=== PATIENT | male | born 1950 | race Caucasian/White ===

== ENCOUNTER → 2019-09-04 | Outpatient (CLI) | payer MEDICARE, OTHER ==
--- NOTE | 2019-09-04 13:03 | RAD ---
EXAM: Chest, 2 views. HISTORY: Cough. COMPARISON: 07/05/2010. FINDINGS: 2 views of the chest are obtained. There is emphysema with apical predominant pleural parenchymal scarring. There is no pleural effusion or pneumothorax. The heart is normal in size. There is evidence of prior CABG. There is a small nodular opacity overlying the right lower lobe which may be due to a nipple shadow. IMPRESSION: 1. Emphysema with apical predominant pleural parenchymal scarring. 2. Small nodule overlying the right lower lobe. Follow-up following placement of nipple markers is recommended. Electronically signed by: Sharron Harper MD (09/04/2019 1:00 PM) [place] [id number]
== END | disposition home or self-care (01) ==
LOC: RAD 12:32
PROVIDERS: ATTEND Specialist
DX: J43.9 Emphysema, unspecified (principal); J98.4 Other disorders of lung; R91.1 Solitary pulmonary nodule; Z95.1 Presence of aortocoronary bypass graft
CPT/HCPCS: 71046

== ENCOUNTER 2021-04-29 21:02 | Emergency (ER) | payer MEDICARE ==
[~2021-04-29] VITALS: Ht 180.3 cm; Wt 78.7 kg
--- NOTE | 2021-04-29 21:18 | PHYS DOC ---
General Adult EDM: Chief Complaint: weakness HPI: HPI: 71-year-old male presents via EMS as a diversion from the IN. The patient was going to the hospital because he has had increased weakness. He was so weak that he fell at home today. He denies any injuries. The patient does have some mild dementia at baseline according to family. The patient was recently in the hospital at the [place], but he does not remember why. He does not have any specific complaints other than general weakness. He has been vaccinated against COVID-19 with the Moderna vaccine series. He was reported to have a fever at home, but none in the ER. Review of Systems: Review of Systems: Constitutional: Fever, weakness Eyes: Denies change in visual acuity HENT: Denies nasal congestion or sore throat Respiratory: Denies cough or shortness of breath Cardiovascular: Denies chest pain or edema GI: Denies abdominal pain, nausea, vomiting, bloody stools or diarrhea : Denies dysuria Musculoskeletal: Denies back pain or joint pain Integument: Denies rash Neurologic: Denies headache, focal weakness or sensory changes Endocrine: Denies polyuria or polydipsia Lymphatic: Denies swollen glands Psychiatric: Denies depression or anxiety Physical Exam: PE: Constitutional: Well developed, well nourished, no acute distress, non-toxic sukumar earance. [] HENT: Normocephalic, atraumatic, bilateral external ears normal, oropharynx moist, no oral exudates, nose normal. [] Eyes: PERRLA, EOMI, conjunctiva normal, no discharge. [] Neck: Normal range of motion, no tenderness, supple, no stridor. [] Cardiovascular: Heart rate regular rhythm, no murmur [] Lungs & Thorax: Bilateral breath sounds clear to auscultation [] Abdomen: Bowel sounds normal, soft, no tenderness, no masses, no pulsatile masses. [] Skin: Warm, dry, no erythema, no rash. [] Back: No tenderness, no CVA tenderness. [] Extremities: No tenderness, no cyanosis, no clubbing, ROM intact, no edema. [] Neurologic: Alert and oriented X 3, normal motor function, normal sensory function, no focal deficits noted. [] Psychologic: Affect normal, judgement normal, mood normal. [] EKG: EKG: [] Radiology/Procedures: Radiology/Procedures: [] Impressions: Exam: CT head INDICATION: Altered mental status TECHNIQUE: Sequential axial images through the head were obtained without the administration of IV contrast. Exposure: One or more of the following in the visualized dose reduction techniques were utilized for this examination: 1. Automated exposure control 2. Adjustment of the MA and/or KV according to patient size 3. Use of iterative of reconstructive technique Comparisons: None FINDINGS: No focal parenchymal lesion or hemorrhage is identified. There is no midline shift or sulcal effacement. Chronic appearing infarct at the left frontal lobe and right parietal lobe. No acute vascular territory infarction is identified. Alcantar-white distinction is preserved. The ventricular system is within normal limits without compression hydrocephalus. The basal cisterns are well maintained. The visualized portions of the paranasal sinuses and mastoid air cells are well- pneumatized. No acute fractures. IMPRESSION: Chronic appearing infarcts in the supratentorial white matter. Difficult to exclude subacute or acute ischemia without recent prior imaging. If there are concerns for acute ischemia MRI would better evaluate. Electronically signed by: Shruthi Sun MD (04/29/2021 9:48 PM) [facility] DICTATED AND SIGNED BY: SHRUTHI SUN MD DATE: 04/29/212145 CC: SYBIL JONES DO; XU GOLD MD ~MTH0 0 Exam: Chest one view INDICATION: Altered mental status TECHNIQUE: Frontal view of the chest Comparisons: 09/04/2019 FINDINGS: Sternotomy wires are noted. Surgical clips overlying the left heart border. The cardiomediastinal silhouette and pulmonary vessels are within normal limits. The lung and pleural spaces are clear. IMPRESSION: No acute pulmonary process. Electronically signed by: Shruthi Sun MD (04/29/2021 9:49 PM) [facility] DICTATED AND SIGNED BY: SHRUTHI SUN MD DATE: 04/29/212147 CC: SYBIL JONES DO; XU GOLD MD ~MTH0 0 Heart Score: C/O Chest Pain: N/A Risk Factors: Risk Factors: DM, Current or recent (<one month) smoker, HTN, HLP, family history of CAD, obesity. Risk Scores: Score 0 - 3: 2.5% MACE over next 6 weeks - Discharge Home Score 4 - 6: 20.3% MACE over next 6 weeks - Admit for Clinical Observation Score 7 - 10: 72.7% MACE over next 6 weeks - Early Invasive Strategies Course & Med Decision Making: Course & Med Decision Making Pertinent Labs and Imaging studies reviewed. (See chart for details) Patient CT scan is negative for acute findings. His chest x-ray is negative for acute findings. The patient's labs showed mild anemia and elevated BUN/creatinine. Given his kidney disease this is likely at or near his baseline. I have no previous for comparison in our chart. The patient's urinalysis is negative for infection. I do not have a good reason for the patient's increased weakness. He does not meet admission criteria. He is stable for discharge at this time. [] Dragon Disclaimer: Dragnava Disclaimer: This electronic medical record was generated, in whole or in part, using a voice recognition dictation system. Departure Departure: Impression: Primary Impression: Weakness Disposition: HOME / SELF CARE / HOMELESS Condition: STABLE Referrals: XU GOLD MD (PCP) Patient Instructions: Noe [id number] SYBIL JONES DO Apr 29, 2021 21:18
[2021-04-29 21:33] LABS: BASO % 0 % (0-3); EOS # 0.3 x10^3/uL (0.0-0.7); EOS % 3 % (0-3); HEMATOCRIT 35.2 % (39.0-53.0); HEMOGLOBIN 11.7 g/dL (13.0-17.5); LYMPH # 2.3 x10^3/uL (1.0-4.8); LYMPH % 23 % (24-48); MEAN CORPUSCULAR HEMOGLOBIN 31 pg (25-35); MEAN CORPUSCULAR HGB CONC 33 g/dL (31-37); MEAN CORPUSCULAR VOLUME 92 fL (79-100); MONO # 1.3 x10^3/uL (0.0-1.1); MONO % 13 % (0-9); NEUT % 61 % (31-73); PLATELET COUNT 148 x10^3/uL (140-400); RED BLOOD COUNT 3.83 x10^6/uL (4.30-5.70); RED CELL DISTRIBUTION WIDTH 17.1 % (11.5-14.5); WHITE BLOOD COUNT 9.8 x10^3/uL (4.0-11.0)
[2021-04-29 21:36] LABS: CALCIUM 8.6 mg/dL (8.5-10.1); GFR 33.3; POTASSIUM 4.6 mmol/L (3.5-5.1)
[2021-04-29 21:42] LABS: ALBUMIN 2.5 g/dL (3.4-5.0); ALBUMIN/GLOBULIN RATIO 0.7 (1.0-1.7); TOTAL BILIRUBIN 0.3 mg/dL (0.2-1.0); TOTAL PROTEIN 6.3 g/dL (6.4-8.2)
--- NOTE | 2021-04-29 21:50 | RAD ---
Exam: CT head INDICATION: Altered mental status TECHNIQUE: Sequential axial images through the head were obtained without the administration of IV co ntrast. Exposure: One or more of the following in the visualized dose reduction techniques were utilized for this examination: 1. Automated exposure control 2. Adjustment of the MA and/or KV according to patient size 3. Use of iterative of reconstructive technique Comparisons: None FINDINGS: No focal parenchymal lesion or hemorrhage is identified. There is no midline shift or sulcal effaceme nt. Chronic appearing infarct at the left frontal lobe and right parietal lobe. No acute vascular territo ry infarction is identified. Alcantar-white distinction is preserved. The ventricular system is within normal limits without compression hydrocephalus. The basal cisterns are well maintained. The visualized portions of the paranasal sinuses and mastoid air cells are well-pneumatized. No acute fractures. IMPRESSION: Chronic appearing infarcts in the supratentorial white matter. Difficult to exclude subacute or acute ischemia without recent prior imaging. If there are concerns for acute ischemia MRI would better ghazal luate. Electronically signed by: Shruthi Orlando MD (04/29/2021 9:48 PM) [facility]
--- NOTE | 2021-04-29 21:52 | RAD ---
Exam: Chest one view INDICATION: Altered mental status TECHNIQUE: Frontal view of the chest Comparisons: 09/04/2019 FINDINGS: Sternotomy wires are noted. Surgical clips overlying the left heart border. The cardiomediastinal silhouette and pulmonary vessels are within normal limits. The lung and pleural spaces are clear. IMPRESSION: No acute pulmonary process. Electronically signed by: Shruthi Orlando MD (04/29/2021 9:49 PM) [place]
[2021-04-29 22:16] LABS: % BANDS 2 % (0-9); % EOS 7 % (0-5); % LYMPHS 28 % (24-48); % MONOS 14 % (0-10); % SEGS 49 % (35-66); PLT ESTIMATE ADEQUATE (ADEQUATE)
[2021-04-29] MEDS ORDERED: see list (22:19)
[2021-04-29 22:41] LABS: BILIRUBIN,URINE NEG (NEG); CLARITY,URINE CLEAR; COLOR,URINE YELLOW; GLUCOSE,URINE NEG (NEG); NITRITE,URINE NEG (NEG); UROBILINOGEN,URINE 0.2 mg/dL (0.2 mg/dL)
[2021-04-29 22:42] LABS: BACTERIA,URINE 0 /HPF (0-FEW); RBC,URINE >40 /HPF (0-2); SQUAMOUS EPITHELIAL CELL,UR OCC /LPF; WBC,URINE OCC /HPF (0-4)
[2021-04-29 23:15] VITALS: BP 132/63
--- NOTE | 2021-04-30 06:23 | EKG ---
[address] [address] Test Date: 2021-04-29 Test Time: 21:19:30 Pat Name: [place] OWENS Department: Room: Gender: M Licensed Funeral Director: DAREK : 1950 Requested By: SYBIL JONES Order Number: [id number] Reading MD: Measurements Intervals [place] Rate: 84 P: 53 LA: 146 QRS: 54 QRSD: 68 T: 64 QT: 318 QTc: 379 Interpretive Statements SINUS RHYTHM NO SPECIFIC ECG ABNORMALITIES RI6.02 No previous ECG available for comparison
== END 2021-04-29 23:45 | disposition home or self-care (01) ==
LOC: ER 21:02
DX: R53.1 Weakness (principal); R50.9 Fever, unspecified; W18.39XA Other fall on same level, initial encounter; Y93.89 Activity, other specified; Y92.098 Other place in other non-institutional residence as the place of occurrence of the external cause; Y99.8 Other external cause status
CPT/HCPCS: 36415; 70450; 71045; 80053; 81001; 83605; 84484; 85007; 85025; 87040; 93005; 99285

== ENCOUNTER → 2021-07-28 | Outpatient (CLI) | payer MEDICARE ==
[~2021-07-28] MED LIST: see list
--- NOTE | 2021-07-28 15:22 | RAD ---
AP and Lateral Views of the Chest 07/28/2021 3:10 PM Indication: Reason: COUGH / Spl. Instructions: / History: Comparison: Chest radiograph April 29, 2021 Findings: There is an centimeters changes throughout the lungs similar to comparison exam. There is d iffuse interstitial thickening and apical scarring. No pneumothorax is identified. No pleural effusio n is seen. No acute appearing focal infiltrates are identified. Heart size is normal. Prior median st ernotomy noted. No acute osseous abnormality is identified. IMPRESSION: 1. No evidence of acute cardiopulmonary process 2. Probable changes of COPD Electronically signed by: Randy Louise MD (07/28/2021 3:19 PM) [id number]
== END ==
LOC: RAD 15:03
PROVIDERS: ATTEND Specialist
DX: R91.8 Other nonspecific abnormal finding of lung field (principal); Z98.890 Other specified postprocedural states
CPT/HCPCS: 71046

== ENCOUNTER → 2021-07-30 | Outpatient (CLI) | payer MEDICARE | LOC: LAB 11:26 | PROVIDERS: ATTEND Internal Medicine | DX: R05.9 Cough, unspecified (principal) | CPT/HCPCS: 87070; 87116; 87205 ==

== ENCOUNTER 2021-10-16 03:21 | Emergency (ER) | payer MEDICARE ==
[~2021-10-16] VITALS: Ht 180.3 cm; Wt 85.6 kg
--- NOTE | 2021-10-16 03:37 | PHYS DOC ---
Past History Additional Past Medical Histor: glomerulonephritis;paraphilia NOS;sleep apnea; impulse contr dx;glaucoma Past Surgical History: Coronary Bypass Surgery, Other Additional Past Surgical Histo: deviated septum Alcohol Use: None Adult General Chief Complaint Chief Complaint: MULTIPLE COMPLAINTS HPI HPI Patient is a 71-year-old male with a past medical history of CAD status post bypass, COPD, CKD and a neurogenic bladder using self-catheterization at home who presents to the emergency department with a chief complaint of chills, sweats and shakes which started about 1 to 2 hours ago as he was laying in bed at home sleeping. Denies any recent travels, traumas, illnesses, fevers, chest pain, shortness of breath, abdominal pain, nausea, vomiting, diarrhea. States that he catheterized himself last night and got a normal amount of urine without any blood noticeable. Denies any known ill contacts. States he is otherwise been eating and drinking normally. Review of Systems Review of Systems Review of systems otherwise unremarkable except noted in HPI Allergies Allergies Allergies Coded Allergies Type Severity Reaction Last Updated Verified atorvastatin Allergy Intermediate 04/29/21 Yes doxazosin Allergy Unknown 04/29/21 Yes terazosin Allergy Unknown 04/29/21 Yes Physical Exam Physical Exam Constitutional: Well developed, well nourished, no acute distress, appears diaphoretic and has rigors HENT: Normocephalic, atraumatic, bilateral external ears normal, oropharynx moist, no oral exudates, nose normal. [] Eyes: conjunctiva normal, no discharge. [] Neck: Normal range of motion, no tenderness, supple, no stridor. [] Cardiovascular:Heart rate regular rhythm, no murmur [] Lungs & Thorax: Bilateral breath sounds with mild congestion with no increased work of breathing or wheeze Abdomen: soft, no tenderness, no masses, no pulsatile masses. [] Skin: Warm, dry, no erythema, no rash. [] Back: No tenderness, no CVA tenderness. [] Extremities: No tenderness, no cyanosis, no clubbing, ROM intact, no edema. [] Neurologic: Alert and oriented X 3, normal motor function, normal sensory function, no focal deficits noted. [] Psychologic: Affect normal, judgement normal, mood normal. [] EKG EKG [] Radiology/Procedures Radiology/Procedures [] XR CHEST 1V Clinical Indication: Reason: SOB / Comparison: Two-view chest July 28, 2021. Findings: There are stable CABG changes. The cardiomediastinal silhouette is normal. Right apical scarring is unchanged. There is upper lung emphysema. Lungs are hyperexpanded, unchanged. There is stable blunting of the left costophrenic angle. There is no pneumothorax. No pleural effusion is appreciated. No acute b one abnormality. IMPRESSION: 1. No acute cardiopulmonary process. 2. COPD. Heart Score C/O Chest Pain: No Risk Factors: Risk Factors: DM, Current or recent (<one month) smoker, HTN, HLP, family history of CAD, obesity. Risk Scores: Risk Factors: DM, Current or recent (<one month) smoker, HTN, HLP, family history of CAD, obesity. Course & Med Decision Making Course & Med Decision Making Patient is a 71-year-old male with multiple medical problems who presents with a chief complaint of chills, fatigue and sweats as well as shakes Vital signs notable for hypertension. Physical exam noted above. Patient placed on the monitor with IV access established and IV fluid started. Given ibuprofen as patient took 650 of Tylenol before coming. Blood cultures obtained and antibiotics given as there is concern for infection given patient's rigors, chills and sweats and has a risk of urinary tract infection given the catheterization. Laboratory analysis not concerning. Urinalysis not concerning. Chest x-ray not concerning. Patient's shakes resolved completely in the emergency department Rest of patient's care and disposition handed off to day team. [] Dragon Disclaimer Dragon Disclaimer This electronic medical record was generated, in whole or in part, using a voice recognition dictation system. Departure Departure: Impression: Primary Impression: Chills Additional Impressions: Shakes Fatigue Condition: STABLE Referrals: XU GOLD MD (PCP) Additional Instructions: You have been tested for or diagnosed with COVID-19. It is an infection caused by a new type of coronavirus. COVID-19 will cause cold-like or mild flu symptoms in most. It can cause more severe symptoms like problems breathing in some. There is no treatment for COVID-19. The body will clear the infection over time. Self-care will help to ease discomfort. Steps to Take: Self-Care Rest as needed. Healthy habits may help you feel better. Steps include: Choose healthy foods including fruits and vegetables. Drink water throughout the day. Get plenty of sleep each night. If you smoke, try to quit. It may ease breathing. Avoid alcohol. Keep Others Healthy The virus can spread to others. Droplets are released every time you sneeze or cough. The droplets can get into the mouth, nose, or eyes of people near you and lead to infection. To lower the chances of spreading COVID-19 to others: Stay at home until your doctor has said it is safe to leave. If you tested positive this will mean staying isolated until both of the following are true: At least 7 days have passed since the start of illness. You are free of fever for at least 72 hours without the use of medicine. During this time: - Avoid public areas, events, or transportation. Do not return to work or school until your doctor has said it is safe to do so. - Call ahead if you need to go to a medical center. Let them know you may have COVID-19. It will help them guide you where to go. They may also ask you to wear a facemask when you come to the office. - If you call for emergency medical services, let them know you may have COVID- 19. While at home: - Try to avoid close contact with others. Stay about 6 feet away. - If possible, spend most of your time in a separate room from others. - Use a face mask if you will be in close contact with others such as sharing a room or vehicle. - Have someone wipe down common surfaces in the home. Use household podiatry doctor every day on areas like doorknobs, counters, or sinks. - Cough or sneeze into a tissue. Throw the tissue away right after use. If a tissue is not available, cough or sneeze into your elbow. - Wash your hands often. Wash them after sneezing or coughing. Use soap and water and wash for at least 20 seconds. Alcohol based hand equipment cleaner can be used if soap and water is not available. - Do not prepare food for others. Avoid sharing personal items like forks, spoons, or toothbrushes. - Avoid close contact with pets while you are sick. There is no evidence of the virus passing to pets. This is a safety step until more is known about this virus. Isolation can be frustrating. Social interaction can help. Keep in touch with friends and family through phone and tech options. You can still interact with others in your home, just keep a safe distance of about 6 feet. Follow-up: Your doctors office will check in with you to see if there are any changes in y our health. You may be asked to keep track of symptoms to share with them. They will also let you know when you are clear to be in public again. Problems to Look Out For: Contact your doctor if your recovery is not going as you expect. Get emergency care if you have problems such as: - Trouble breathing - Nonstop chest pain or pressure - Changes in awareness, confusion, or problems waking - Lips or face have bluish color - Worsening of symptoms If you think you have an emergency, call for emergency medical services right away. As taken from [facility] Problem Qualifiers JULIA FLORES MD Oct 16, 2021 03:37
[2021-10-16] MEDS ORDERED: IV RINGERS SOLUTION,LACTATED 1,000 ML IV ONE ×2 (04:00→06:00)
[2021-10-16] MEDS ORDERED: IBUPROFEN 600 MG TABLET. PO ONE (04:00)
--- NOTE | 2021-10-16 04:35 | RAD ---
XR CHEST 1V Clinical Indication: Reason: SOB / Comparison: Two-view chest July 28, 2021. Findings: There are stable CABG changes. The cardiomediastinal silhouette is normal. Right apical scarring is u nchanged. There is upper lung emphysema. Lungs are hyperexpanded, unchanged. There is stable blunting of the left costophrenic angle. There is no pneumothorax. No pleural effusion is appreciated. No acu te bone abnormality. IMPRESSION: 1. No acute cardiopulmonary process. 2. COPD. Electronically signed by: Chadwick Bernal MD (10/16/2021 4:32 AM) [facility]
[2021-10-16 05:16] LABS: BASO % 0 % (0-3); EOS % 0 % (0-3); HEMATOCRIT 37.2 % (39.0-53.0); LYMPH % 14 % (24-48); MEAN CORPUSCULAR HEMOGLOBIN 29 pg (25-35); MEAN CORPUSCULAR HGB CONC 32 g/dL (31-37); MEAN CORPUSCULAR VOLUME 90 fL (79-100); MONO % 1 % (0-9); NEUT % 85 % (31-73); PLATELET COUNT 149 x10^3/uL (140-400); RED BLOOD COUNT 4.12 x10^6/uL (4.30-5.70); RED CELL DISTRIBUTION WIDTH 17.2 % (11.5-14.5); WHITE BLOOD COUNT 7.1 x10^3/uL (4.0-11.0)
[2021-10-16 05:22] LABS: BACTERIA,URINE 0 /HPF (0-FEW); BILIRUBIN,URINE NEG (NEG); CLARITY,URINE CLEAR; COLOR,URINE YELLOW; GLUCOSE,URINE NEG (NEG); NITRITE,URINE NEG (NEG); RBC,URINE 0 /HPF (0-2); SQUAMOUS EPITHELIAL CELL,UR FEW /LPF; UROBILINOGEN,URINE 0.2 mg/dL (0.2 mg/dL); WBC,URINE OCC /HPF (0-4)
[2021-10-16 05:26] LABS: CALCIUM 9.1 mg/dL (8.5-10.1); CREATININE 1.8 mg/dL (0.7-1.3); GFR 37.6; POTASSIUM 4.6 mmol/L (3.5-5.1)
[2021-10-16 05:29] LABS: INFLUENZA A PATIENT NEGATIVE (NEGATIVE); INFLUENZA B PATIENT NEGATIVE (NEGATIVE)
[2021-10-16 05:39] LABS: ALBUMIN 3.1 g/dL (3.4-5.0); ALBUMIN/GLOBULIN RATIO 0.7 (1.0-1.7); C REACTIVE PROTEIN 2.5 mg/L (0-3.3); MAGNESIUM 2.2 mg/dL (1.8-2.4); TOTAL BILIRUBIN 0.4 mg/dL (0.2-1.0); TOTAL PROTEIN 7.8 g/dL (6.4-8.2)
[2021-10-16] MEDS ORDERED: CONTRAST GIVEN. MC PRN (06:00)
--- NOTE | 2021-10-16 06:11 | EKG ---
[address] [address] Test Date: 2021-10-16 Test Time: 05:14:26 Pat Name: [place] OWENS Department: Room: Gender: M Senior Property Manager: LARS : 1950 Requested By: JULIA FLORES Order Number: [id number] Reading MD: Dalton Monge Measurements Intervals [place] Rate: 109 P: 128 AK: 138 QRS: 17 QRSD: 66 T: 66 QT: 302 QTc: 408 Interpretive Statements SINUS TACHYCARDIA T ABNORMALITY IN HIGH LATERAL LEADS Electronically Signed On 10-17-2021 13:03:53 TRANSPORTATION PROJECT MANAGER by Dalton Monge
[2021-10-16] MEDS ORDERED: IOHEXOL 300 MG/ML 75 ML VIAL. IV ONE (06:30)
--- NOTE | 2021-10-16 06:40 | RAD ---
PQRS Compliance Statement: One or more of the following individualized dose reduction techniques were utilized for this examinat ion: 1. Automated exposure control 2. Adjustment of the mA and/or kV according to patient size 3. Use of iterative reconstruction technique CT ABDOMEN+PELVIS W Clinical Indication: Reason: sepsis w/u, chills, sweats, shakes, neurogenic blad Comparison: None. Technique: Helical CT imaging of the abdomen and pelvis is performed after 60 cc of Omnipaque 300 IV contrast. Oral contrast not administered. Findings: Median sternotomy wires. There is mild bilateral lower lobe atelectasis or scarring. Trace right pleu ral effusion or pleural thickening. Coronary artery disease. Cardiac size normal. Liver, gallbladder, spleen, pancreas, and adrenal glands are normal. Moderate aortoiliac atherosclero tic calcification, no aneurysm. Kidneys enhance symmetrically, no hydronephrosis. The stomach is unremarkable. No small bowel obstruction. No colon wall thickening is identified. The appendix is normal. No abdominal adenopathy or free fluid. Urinary bladder is mildly distended, otherwise normal. Prostate size normal. No pelvic free fluid. There is vacuum disc phenomenon of L5/S1. IMPRESSION: No acute abdominal or pelvic abnormality. Electronically signed by: Chadwick Bernal MD (10/16/2021 6:38 AM) [facility]
[2021-10-16 06:55] VITALS: BP 105/48
--- NOTE | 2021-10-17 06:38 | EKG ---
[address] [address] Test Date: 2021-10-16 Test Time: 05:13:26 Pat Name: NJ OWENS Department: Room: Gender: M Membership Correspondent: LARS : 1950 Requested By: JULIA FLORES Order Number: [id number] Reading MD: Dalton Monge Measurements Intervals [place] Rate: 109 P: -19 [place]: 134 QRS: 21 QRSD: 66 T: 99 QT: 296 QTc: 400 Interpretive Statements SINUS TACHYCARDIA QRS(T) CONTOUR ABNORMALITY CONSISTENT WITH INFERIOR INFARCT PROBABLY OLD T ABNORMALITY IN HIGH LATERAL LEADS ABNORMAL ECG Electronically Signed On 10-17-2021 13:04:54 PLUGGER MAN by Dalton Monge
== END 2021-10-16 07:21 | disposition home or self-care (01) ==
LOC: ER 03:21
DX: R68.83 Chills (without fever) (principal); R53.83 Other fatigue; R61 Generalized hyperhidrosis; N18.9 Chronic kidney disease, unspecified; I25.810 Atherosclerosis of coronary artery bypass graft(s) without angina pectoris; J44.9 Chronic obstructive pulmonary disease, unspecified; Z20.822 Contact with and (suspected) exposure to COVID-19; Z88.8 Allergy status to other drugs, medicaments and biological substances
CPT/HCPCS: 71045; 74177; 80053; 81001; 82550; 82803; 83605; 83735; 84484; 85025; 86140; 87040; 87428; 93005; 96361; 96365; 99285; C9803; J1956; J7120; Q9967; U0003